=== PATIENT | male | born 1980 | race Caucasian/White ===

== ENCOUNTER 2020-10-22 05:47 | Day surgery (SDC) | payer OTHER ==
[2020-10-20 09:06] LABS: BASOPHILS % (AUTO) 1 % (0-1); EOSINOPHILS % (AUTO) 4 % (1-7); LYMPHOCYTES % (AUTO) 23 % (22-44); MEAN CORPUSCULAR HEMOGLOBIN 30.8 pg (27.5-34.5); MEAN CORPUSCULAR HGB CONC 34.2 g/dL (33.2-36.2); MEAN PLATELET VOLUME 8.4 fL (7.4-10.4); MONOCYTES % (AUTO) 8 % (2-9); NEUTROPHILS % (AUTO) 65 % (42-75); PLATELET COUNT 293 x10^3/uL (130-400); RED BLOOD COUNT 5.48 x10^6/uL (4.38-5.82); RED CELL DISTRIBUTION WIDTH 13.7 % (9.4-14.8)
[2020-10-20 09:07] LABS: ANION GAP 6 mmol/L (5-15); CALCIUM 9.4 mg/dL (8.5-10.1); CHLORIDE 107 mmol/L (98-107); CREATININE 0.98 mg/dL (0.7-1.3); INTERNATIONAL NORMALIZED RATIO 0.99 (0.93-1.1); PROTHROMBIN TIME 10.5 Seconds (9.6-11.5)
[2020-10-20 09:08] LABS: MD NO
[~2020-10-22] VITALS: Ht 195.6 cm; Wt 136.1 kg
[~2020-10-22 05:47] MED LIST: GABA300C PO; TEST200V3 IM
[2020-10-22 06:47] VITALS: BP 135/93
[2020-10-22] MEDS ORDERED: LACTATED RINGERS 1,000 ML IV SCH (07:00)
[2020-10-22] MEDS ORDERED: CHLORHEXIDINE 15 ML UDC MM ONE (07:00)
[2020-10-22] MEDS ORDERED: LIDOCAINE-MPF 1%, 2ML ONE (07:03)
[2020-10-22] MEDS ORDERED: LIDOCAINE-MPF 1%, 2ML INFIL ONE (07:30)
[2020-10-23] MEDS ORDERED: HYDR-3246 PO (10:09)
== END 2020-10-22 08:12 | disposition home or self-care (01) ==
LOC: OUT 05:47
PROVIDERS: ATTEND Neurological Surgery
DX: M51.26 Other intervertebral disc displacement, lumbar region (principal); Z53.8 Procedure and treatment not carried out for other reasons; Z20.822 Contact with and (suspected) exposure to COVID-19; Z79.01 Long term (current) use of anticoagulants; Z79.899 Other long term (current) drug therapy
CPT/HCPCS: 36415; 71046; 80048; 85025; 85610; 85730; 93005; J7120; U0003

== ENCOUNTER 2020-10-23 05:36 | Day surgery (SDC) | payer OTHER ==
[~2020-10-23] VITALS: Ht 195.6 cm; Wt 137.0 kg
[2020-10-23 06:16] VITALS: BP 143/87
[2020-10-23] MEDS ORDERED: LACTATED RINGERS 1,000 ML IV SCH ×2 (06:30)
[2020-10-23] MEDS ORDERED: CHLORHEXIDINE 15 ML UDC MM ONE ×2 (06:30)
[2020-10-23] MEDS ORDERED: HYDROmorphone 2 MG/ML, 1ML ONE (06:44)
[2020-10-23] MEDS ORDERED: MIDAZOLAM 1 MG/ML, 2ML ONE (06:48)
[2020-10-23] MEDS ORDERED: FENTANYL PF 250 MCG/5ML ONE (06:49)
[2020-10-23] MEDS ORDERED: ACETAMINOPHEN 500 MG TABLET PO STA (07:04)
[2020-10-23] MEDS ORDERED: ACETAMINOPHEN 500 MG TABLET ONE (07:06)
[2020-10-23] MEDS ORDERED: GABAPENTIN 300 MG CAPSULE ONE (07:06)
[2020-10-23] MEDS ORDERED: BACITRACIN OINT 500U/GM, 15 GM ONE (07:19)
[2020-10-23] MEDS ORDERED: BUPIVACAINE/EPI 0.5% 1:200K ONE (07:19)
[2020-10-23] MEDS ORDERED: THROMBIN 20,000 UNIT VIAL TP ONE (07:19)
[2020-10-23] MEDS ORDERED: BACITRACIN 50,000 UNIT ONE (07:19)
[2020-10-23] MEDS ORDERED: GABAPENTIN 300 MG CAPSULE PO ONE (07:30)
[2020-10-23] MEDS ORDERED: PROPOFOL 10 MG/ML, 20ML ONE ×2 (07:33)
[2020-10-23] MEDS ORDERED: DEXAMETHASONE 4 MG/ML, 5ML ONE (07:33)
[2020-10-23] MEDS ORDERED: PROPOFOL 10 MG/ML, 50ML ONE ×2 (07:33)
[2020-10-23] MEDS ORDERED: ONDANSETRON 2MG/ML, 2ML ONE (07:33)
[2020-10-23] MEDS ORDERED: GLYCOPYRROLATE 0.2MG/1ML, 5ML ONE (07:33)
[2020-10-23] MEDS ORDERED: PHENYLEPHRINE 10 MG/ML ONE (07:33)
[2020-10-23] MEDS ORDERED: CEFAZOLIN 1,000 MG ONE (07:33)
[2020-10-23] MEDS ORDERED: ROCURONIUM 10MG/ML,5ML ONE (07:33)
[2020-10-23] MEDS ORDERED: NEOSTIGMINE 1 MG/ML, 10ML ONE (07:33)
[2020-10-23] MEDS ORDERED: METOCLOPRAMIDE 5 MG/ML, 2ML IVPush PRN (08:30)
[2020-10-23] MEDS ORDERED: FENTANYL PF 100 MCG/2ML IV PRN (08:30)
[2020-10-23] MEDS ORDERED: HYDROmorphone 1 MG/ML, 1ML INJ IVPush PRN (08:30)
[2020-10-23] MEDS ORDERED: hydrALAzine 20 MG/ML, 1ML IV PRN (08:30)
[2020-10-23] MEDS ORDERED: KETOROLAC 30 MG/1 ML IVPush PRN (08:30)
[2020-10-23] MEDS ORDERED: DIAZEPAM 5 MG/ML, 2ML IVPush PRN (08:30)
[2020-10-23] MEDS ORDERED: LABETALOL 5MG/ML, 20ML IV PRN (08:30)
[2020-10-23] MEDS ORDERED: HALOPERIDOL 5 MG/ML IV PRN (08:30)
[2020-10-23] MEDS ORDERED: ONDANSETRON 2MG/ML, 2ML IVPush PRN (08:30)
[2020-10-23] MEDS ORDERED: EPHEDRINE 50 MG/ML, 1ML IVPush PRN (08:30)
[2020-10-23] MEDS ORDERED: OXYcodone 5 MG/5 ML ORAL.SOL UDC PO PRN (08:30)
[2020-10-23] MEDS ORDERED: OXYcodone 5 MG/5 ML ORAL.SOL UDC ONE (09:51)
[2020-10-23] MEDS ORDERED: FENTANYL PF 100 MCG/2ML ONE (09:51)
[2020-10-23] MEDS ORDERED: HYDR-3246 PO (10:09)
== END 2020-10-23 13:10 | disposition home or self-care (01) ==
LOC: OUT 05:36
PROVIDERS: ATTEND Neurological Surgery
DX: M51.17 Intervertebral disc disorders with radiculopathy, lumbosacral region (principal); M48.07 Spinal stenosis, lumbosacral region; M54.5 Low back pain; E66.9 Obesity, unspecified; Z68.35 Body mass index [BMI] 35.0-35.9, adult; Z79.899 Other long term (current) drug therapy; Z82.49 Family history of ischemic heart disease and other diseases of the circulatory system; Z82.5 Family history of asthma and other chronic lower respiratory diseases
CPT/HCPCS: 63030; 63035; 72100; 95938; 95941; J0690; J1100; J1170; J2250; J2370; J2405; J2704; J2710; J3010; J7120